=== PATIENT | female | born 1950 | race Hispanic/Latino ===

== ENCOUNTER 2021-06-23 23:54 | Emergency (ER) | payer MEDICARE ==
--- NOTE | 2021-06-24 01:56 | Emergency Department Report ---
ED Psych HPI - General Stated Complaint: SI Time Seen by Provider: 06/24/21 01:52 Source: patient, EMS - History of Present Illness Initial Comments: Patient is 71 years old female with history of bipolar disorder and COPD. Tru brown presented to the ER via EMS for mental health evaluation. Patient stated that she feels suicidal for the last 2 days. Patient stated that the reason is because she is having difficulty concentrating. She does not have a specific plan. Patient denies any homicidal ideation. No visual or auditory hallucination. MD Complaint: suicidal ideation, feels depressed - Related Data Allergies Allergy/AdvReac Type Severity Reaction Status Date / Time No Known Allergies Allergy Unverified 06/24/21 12:01 ED Review of Systems ROS: Stated complaint: SI Other details as noted in HPI Comment: All other systems reviewed and negative Constitutional: denies: chills, fever Respiratory: cough, shortness of breath, wheezing. denies: SOB with exertion, SOB at rest Cardiovascular: denies: chest pain, palpitations Gastrointestinal: denies: abdominal pain, nausea, vomiting Musculoskeletal: denies: back pain Neurological: denies: headache ED Physical Exam - General General appearance: alert, in no apparent distress - Head Head exam: Present: atraumatic, normocephalic, normal inspection - Eye Eye exam: Present: normal appearance - ENT ENT exam: Present: normal exam, normal orophraynx, mucous membranes moist - Neck Neck exam: Present: normal inspection, full ROM. Absent: tenderness, menin gismus - Respiratory Respiratory exam: Present: wheezes, decreased breath sounds. Absent: rales, rhonchi, accessory muscle use, prolonged expiratory - Cardiovascular Cardiovascular Exam: Present: regular rate, normal rhythm, normal heart sounds - GI/Abdominal GI/Abdominal exam: Present: soft, normal bowel sounds. Absent: distended, tenderness, guarding, rebound, rigid, organomegaly, mass, bruit, pulsatile mass, hernia - Extremities Exam Extremities exam: Present: normal inspection, full ROM, normal capillary refill. Absent: tenderness, pedal edema, calf tenderness - Back Exam Back exam: Present: normal inspection, full ROM. Absent: CVA tenderness (R), CVA tenderness (L) - Neurological Exam Neurological exam: Present: alert, oriented X3, CN II-XII intact, normal gait, reflexes normal. Absent: motor sensory deficit - Psychiatric Psychiatric exam: Present: normal mood - Skin Skin exam: Present: warm, intact, normal color ED Course Vital Signs 06/24/21 06/24/21 06/24/21 02:59 10:27 16:22 Temperature 98.7 F 98.6 F 97.8 F Pulse Rate 71 78 89 Respiratory 16 16 18 Rate Blood Pressure 127/65 113/62 118/89 [Right] O2 Sat by Pulse 95 97 98 Oximetry ED Medical Decision Making - Lab Data Result diagrams: 06/24/21 02:38 06/24/21 02:38 Critical care attestation.: If time is entered above; I have spent that time in minutes in the direct care of this critically ill patient, excluding procedure time. ED Disposition Clinical Impression: Suicidal ideation Disposition: [address] [place] [address] Is pt being admited?: No Condition: Stable Referrals: PRIMARY CARE, [Primary Care Provider] - 3-5 Days
[2021-06-24 02:52] LABS: Basophils % (Auto) 0.2 % (0.0-1.8); Hematocrit 41.6 % (30.3-42.9); Hemoglobin 13.4 gm/dl (10.1-14.3); Lymphocytes # (Auto) 0.9 K/mm3 (1.2-5.4); Lymphocytes % (Auto) 24.9 % (13.4-35.0); Mean Corpuscular HGB Conc 32 % (30-34); Mean Corpuscular Volume 88 fl (79-97); Monocytes # (Auto) 0.4 K/mm3 (0.0-0.8); Monocytes % (Auto) 12.5 % (0.0-7.3); Platelet Count 242 K/mm3 (140-440); Red Blood Count 4.76 M/mm3 (3.65-5.03); Red Cell Distribution Width 14.4 % (13.2-15.2)
--- NOTE | 2021-06-24 11:21 | Emergency Department Report ---
Blank Doc - Documentation Documentation: This patient presented overnight with suicidal ideations. For some reason she has 2 charts. Labs were repeated for this chart but the chest x-ray that was performed is seen in the other chart. Resulted as negative for any pneumonia, pleural effusions, pneumothorax, widened mediastinum, or any other acute process. Labs have been mostly unremarkable thus far except for some mild hypokalemia with a potassium level of 3.1. I have placed an order for a 40 mill equivalent potassium chloride pill to be given. Vital signs reassuring including being afebrile. The patient is waiting for a psychiatric evaluation. We will continue to monitor her during her ED course.
[2021-06-24] MEDS ORDERED: IPRATROPIUM 0.02% NEBU 2.5 ML IH ONE (12:56)
[2021-06-24] MEDS ORDERED: POTASSIUM CHLORIDE ER 20 MEQ TAB PO ONE (12:57)
[2021-06-24] MEDS ORDERED: ALBUTEROL 2.5 MG/3 ML NEBU IH ONE (12:57)
--- NOTE | 2021-06-24 13:00 | Consultation ---
History of Present Illness - Reason for Consult Consult date: 06/24/21 Reason for consult: SI - History of Present Psychiatric Illness The patient was seen today. She is a 71y/o female patient who presented to the ER for suicidal thoughts. During my evaluation of the patient she says she wasn't feeling well. The patient says her brother told her to come in and get checked out because she's been having a hard time. She says "I couldn't concentrate on anything, not even what was going on around me." She says she is real depressed and was feeling suicidal. She says "I'm not as suicidal though." The patient says she's been off her bipolar meds for about a month. She could not recall what they were. She says "I need help getting it under control. I feel like I can't manage my biplar right now." She denies any hallucinations. The patient also denies any illicit drug use, alcohol or nicotine. She says she lives a lone in an apartment in [place]. The patient says her brother is her support system. She says he is a [employer] gr[employer] operator in [place], [place]. The patient says surendra keita is disabled, and not . REVIEW OF SYSTEMS Constitutional: Negative for weight loss ENT: Negative for stridor Respiratory: Negative for cough or hemoptysis All other systems reviewed and are negative MENTAL STATUS EXAMINATION General Appearance and Behavior: Age appropriate, good hygiene, wearing appropriate clothes, calm and cooperative Cooperation: cooperative Psychomotor Behavior: Normal Mood: "real depressed" Affect and affective range: congruent with stated mood Thought Process: Goal directed Thought Content: none Speech: Normal Suicidal Ideation: Yes Homicidal Ideation: Denies Hallucination: Denies Delusions: None elicited Impulse Control: Limited Insight and Judgment: limited insight and fair judgment Memory: limited Attention: attentive Orientation: Alert and oriented Assessment (1) Bipolar Disorder Treatment Plan [address] 125mg po BID Start Trazodone 50mg po qhs Medical: per primary Disposition: recommend acute psychiatric inpatient treatment Will follow. Thanks Case staffed with Dr. Loving Medications and Allergies Allergies Allergy/AdvReac Type Severity Reaction Status Date / Time No Known Allergies Allergy Unverified 06/24/21 12:01 Active Meds: Active Medications Albuterol (Albuterol 2.5 Mg/3 Ml Nebu) 5 mg IH ONCE ONE Stop: 06/24/21 01:54 Ipratropium Urania (Ipratropium 0.02% Nebu 2.5 Ml) 0.5 mg IH ONCE ONE Stop: 06/24/21 01:54 Potassium Chloride (Potassium Chloride Er 20 Meq Tab) 40 meq PO ONCE ONE Stop: 06/24/21 11:19 Mental Status Exam - Vital signs Last Vital Signs Temp 98.6 F 06/24/21 10:27 Pulse 78 06/24/21 10:27 Resp 16 06/24/21 10:27 BP 113/62 06/24/21 10:27 Pulse Ox 97 06/24/21 10:27 Results Result Diagrams: 06/24/21 02:38 06/24/21 02:38 Abnormal lab results 06/24/21 06/24/21 06/24/21 Range/Units 02:38 02:38 02:38 WBC 3.5 L (4.5-11.0) K/mm3 [place] % (Auto) 12.5 H (0.0-7.3) % Lymph # (Auto) 0.9 L (1.2-5.4) K/mm3 Potassium 3.1 L (3.6-5.0) mmol/L Carbon Dioxide 19 L (22-30) mmol/L Salicylates < 0.3 L (2.8-20.0) mg/dL Acetaminophen (10.0-30.0) ug/mL 06/24/21 Range/Units 02:38 WBC (4.5-11.0) K/mm3 [place] % (Auto) (0.0-7.3) % Lymph # (Auto) (1.2-5.4) K/mm3 Potassium (3.6-5.0) mmol/L Carbon Dioxide (22-30) mmol/L Salicylates (2.8-20.0) mg/dL Acetaminophen 5.0 L (10.0-30.0) ug/mL All other labs normal.
[2021-06-24] MEDS ORDERED: DIVALPROEX DR 125 MG TAB PO SCH (14:00)
[2021-06-24 16:27] VITALS: BP 118/89
[2021-06-24] MEDS ORDERED: traZODone 50 MG TAB PO SCH (22:00)
== END 2021-06-24 16:22 ==
LOC: ED 23:54
DX: R45.851 Suicidal ideations (principal); F31.9 Bipolar disorder, unspecified; J44.9 Chronic obstructive pulmonary disease, unspecified
CPT/HCPCS: 36415; 80048; 80320; 85025; 99285; G0480